=== PATIENT | male | born 1990 | race Caucasian/White ===

== ENCOUNTER 2018-08-12 10:44 | Emergency (ER) | payer MEDICAID, OTHER ==
[~2018-08-12] VITALS: Ht 177.8 cm; Wt 63.5 kg
[2018-08-12] MEDS ORDERED: cefTRIAXone SOD 1,000 MG VL IM ONE (11:15)
[2018-08-12] MEDS ORDERED: LIDOCAINE 1% HCL (LOCAL ANESTH.) INJ 20ML MDV IJ ONE (11:45)
[2018-08-12 12:19] VITALS: BP 125/74
== END 2018-08-12 12:25 | disposition home or self-care (01) ==
LOC: ER 10:50
DX: J03.90 Acute tonsillitis, unspecified (principal); M54.2 Cervicalgia; Z88.0 Allergy status to penicillin
CPT/HCPCS: 96372; 99283; J0696; J2001

== ENCOUNTER 2018-10-23 11:02 | Emergency (ER) | payer MEDICAID ==
[~2018-10-23] VITALS: Ht 177.8 cm; Wt 63.5 kg
[2018-10-23 11:09] VITALS: BP 120/82
== END 2018-10-23 13:26 | disposition home or self-care (01) ==
LOC: ER 11:02
DX: S02.81XA Fracture of other specified skull and facial bones, right side, initial encounter for closed fracture (principal); S02.609A Fracture of mandible, unspecified, initial encounter for closed fracture; S80.212A Abrasion, left knee, initial encounter; S80.211A Abrasion, right knee, initial encounter; F17.210 Nicotine dependence, cigarettes, uncomplicated; Z88.0 Allergy status to penicillin; Y04.2XXA Assault by strike against or bumped into by another person, initial encounter; Y93.89 Activity, other specified; Y92.511 Restaurant or cafe as the place of occurrence of the external cause; Y99.8 Other external cause status
CPT/HCPCS: 70450; 70486

== ENCOUNTER 2019-10-29 16:29 | Emergency (ER) | payer MEDICAID ==
[~2019-10-29] VITALS: Ht 177.8 cm; Wt 59.0 kg
[2019-10-29 17:00] VITALS: BP 114/84
== END 2019-10-29 18:51 | disposition left against medical advice (07) ==
LOC: ER 16:29
DX: M79.605 Pain in left leg (principal); Z53.21 Procedure and treatment not carried out due to patient leaving prior to being seen by health care provider

== ENCOUNTER 2022-04-10 16:44 | Emergency (ER) | payer MEDICAID ==
[~2022-04-10] VITALS: Ht 177.8 cm; Wt 63.0 kg
[2022-04-10 18:21] LABS: Basophils # (auto) 0 10 ^3/uL (0-0.2); Basophils % (auto) 0.3 % (0.0-2.0); Eosinophils # (auto) 0.1 10 ^3/uL (0-0.8); Eosinophils % (auto) 1.1 % (0.0-7.0); Hematocrit 37.4 % (41.0-53.0); Hemoglobin 12.8 g/dL (13.5-17.5); Lymphocytes # (auto) 0.9 10 ^3/uL (0.4-5.4); Lymphocytes % (auto) 15.1 % (10.0-50.0); Mean Corpuscular Hemoglobin 29.7 pg (28.0-32.0); Mean Corpuscular Hgb Conc. 34.2 g/dL (32.0-36.0); Monocytes # (auto) 0.4 10 ^3/uL (0-1.3); Monocytes % (auto) 7.8 % (0.0-12.0); Neutrophils # (auto) 4.3 10 ^3/uL (1.6-8.6); Neutrophils % (auto) 75.7 % (37.0-80.0); Red Cell Distribution Width 13.1 % (11.8-14.3); White Blood Cell 5.7 10^3/uL (4.4-10.8)
[2022-04-10 18:25] LABS: Albumin 3.6 g/dL (3.4-5.0); BUN/Creatinine Ratio 16.2; Calcium 8.4 mg/dL (8.5-10.1)
[2022-04-10 18:28] LABS: Urine Bacteria NONE SEEN /hpf (None Seen); Urine Blood Negative /uL (Negative); Urine Mucus FEW (None Seen); Urine Specific Gravity 1.027 (1.001-1.035); Urine WBC <1 /hpf (0 - 3)
[2022-04-10 18:28] LABS: Bilirubin, Total 0.3 mg/dL (0.2-1.0); Total Protein 6.4 g/dL (6.4-8.2)
[2022-04-10] MEDS ORDERED: CEPH-510 PO (20:55)
[2022-04-10] MEDS ORDERED: DOXY-340 PO (20:55)
[2022-04-10 22:46] VITALS: BP 110/50
== END 2022-04-10 22:48 | disposition home or self-care (01) ==
LOC: ER 16:44
DX: R22.42 Localized swelling, mass and lump, left lower limb (principal)
CPT/HCPCS: 36415; 80053; 81001; 83605; 85025; 85652; 86141; 87040; 93970

== ENCOUNTER 2022-10-21 10:03 | Emergency (ER) | payer MEDICAID ==
[~2022-10-21] VITALS: Ht 177.8 cm; Wt 61.6 kg
[~2022-10-21 10:03] MED LIST: CEPH-510 PO; DOXY1CAP57 PO
[2022-10-21 11:57] LABS: Urine Bacteria FEW /hpf (None Seen); Urine Blood Negative /uL (Negative); Urine Clarity Clear (Clear); Urine Color Yellow (Yellow); Urine Mucus FEW (None Seen); Urine Protein, UAD Negative (Negative); Urine Specific Gravity 1.022 (1.001-1.035); Urine Urobilinogen Normal (Negative); Urine WBC 1 /hpf (0 - 3)
[2022-10-21] MEDS ORDERED: SODIUM CHLORIDE 0.9% 1,000 ML IV ONE (12:15)
[2022-10-21 13:30] LABS: Alanine Aminotransferase 23 U/L (7-40); Albumin 4.3 g/dL (3.2-4.8); Alkaline Phosphatase 74 U/L (46-116); Anion Gap 3.1 (5-15); Aspartate Aminotransferase 9 U/L (13-40); BUN/Creatinine Ratio 16.1 (10.0-20.0); Bilirubin, Total 0.6 mg/dL (0.2-1.0); Blood Urea Nitrogen 15 mg/dL (9-23); Calcium 9.4 mg/dL (8.5-10.1); Carbon Dioxide 31.9 mmol/L (20-30); Chloride 105 mmol/L (98-107); Glucose 100 mg/dL (74-106); Potassium 4.7 mmol/L (3.5-5.1); Sodium 140 mmol/L (136-145); Total Protein 6.4 g/dL (5.7-8.2)
[2022-10-21 15:09] LABS: Amphetamine Screen, Urine Pos (NEGATIVE)
[2022-10-21 15:10] LABS: Benzodiazephine Screen, Urine Neg (NEGATIVE)
[2022-10-21 15:11] LABS: Barbiturate Scree,Urine Neg (NEGATIVE); Cannabinoid Screen, Urine Neg (NEGATIVE); Cocaine Screen, Urine Neg (NEGATIVE); Opiate Scree,Urine Neg (NEGATIVE); Phencyclidine Screen, Urine Neg (NEGATIVE)
[2022-10-21 15:22] LABS: Basophils # (auto) 0 10 ^3/uL (0-0.2); Basophils % (auto) 0.3 % (0.0-2.0); Eosinophils # (auto) 0 10 ^3/uL (0-0.8); Eosinophils % (auto) 0.8 % (0.0-7.0); Hematocrit 39.7 % (41.0-53.0); Hemoglobin 13.2 g/dL (13.5-17.5); Lymphocytes # (auto) 0.8 10 ^3/uL (0.4-5.4); Lymphocytes % (auto) 12.8 % (10.0-50.0); Mean Corpuscular Hemoglobin 28.8 pg (28.0-32.0); Mean Corpuscular Hgb Conc. 33.3 g/dL (32.0-36.0); Mean Corpuscular Volume 86.5 fL (80.0-100.0); Monocytes # (auto) 0.5 10 ^3/uL (0-1.3); Monocytes % (auto) 7.5 % (0.0-12.0); Neutrophils # (auto) 5.2 10 ^3/uL (1.6-8.6); Neutrophils % (auto) 78.6 % (37.0-80.0); Nucleated Red Blood Cells % 0.1 %; Red Blood Cells 4.59 10^6/uL (4.5-5.90); Red Cell Distribution Width 13.1 % (11.8-14.3); White Blood Cell 6.6 10^3/uL (4.4-10.8)
[2022-10-21] MEDS ORDERED: ASPirin 325 MG TAB PO ONE (16:00)
[2022-10-21 16:59] VITALS: BP 98/37; PULSE 64; RESP 18; TEMP 96.4; O2SAT 99
== END 2022-10-21 15:55 | disposition home or self-care (01) ==
LOC: ER 10:03
DX: R07.9 Chest pain, unspecified (principal); F15.10 Other stimulant abuse, uncomplicated; F11.10 Opioid abuse, uncomplicated; Z79.899 Other long term (current) drug therapy
CPT/HCPCS: 36415; 71045; 80053; 80307; 81001; 82962; 83605; 84484; 85025; 85379; 93005; 96360; 99285; J7030

== ENCOUNTER 2024-12-14 07:13 | Emergency (ER) | payer MEDICAID ==
[~2024-12-14] VITALS: Ht 177.8 cm; Wt 59.1 kg
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
--- NOTE | 2024-12-14 08:36 | DVH ---
EXAM: XY L RIB X RAY HISTORY: FALL X 10 DAYS AGO COMPARISON: XY CHEST PORTABLE on DOS: 10/21/22 TECHNIQUE: Frontal view of the chest and multiple views of the left ribs were performed. FINDINGS: No pneumothorax, pulmonary edema, or consolidative infiltrates. The heart is not enlarged. There is a n acute fracture of the 8th and 9th rib. IMPRESSION: 1. Acute fractures of the left 8th and 9th ribs. 2. No pneumothorax.
--- NOTE | 2024-12-14 08:44 | DVH ---
CLINICAL INFORMATION: Fall injury. TECHNIQUE: Axial imaging was obtained through the brain without contrast. Axial CT imaging of the ma xillofacial region was obtained without contrast. Coronal and sagittal reformatted images were obtai milton, reviewed, and stored. One or more of the following dose reduction techniques were used: Automat ed exposure control. Adjustment of mA and/or kV according to patient size. CTDIvol = 60.74, 55.11, 0.14 mGy DLP = 2383.56 mGy-cm COMPARISON: HEAD WITHOUT CONTRAST on DOS: 10/23/18, MAXILLOFACIAL WITHOUT on DOS: 10/23/18 FINDINGS: CT HEAD: There is no acute intracranial hemorrhage or extraaxial fluid collection. No mass effect or midline shift. The ventricles and sulci are within normal limits in size for age. Basal cisterns are patent. The calvarium is unremarkable. CT FACIAL: Pterygoid plates are intact. There is acute fracture involving the floor of the left orbi t with mild depression. Left inferior rectus muscle courses adjacent to the fracture site without ev idence of entrapment. No orbital hematoma is seen. Globes and orbital structures are intact and other bucio unremarkable. No intraorbital gas visualized. The rest of the orbital luz are intact. There is acute fracture involving the posterolateral wall of the left maxillary sinus with angulation. Mild m ucosal thickening and small amount of fluid in the left maxillary sinus. There is acute fracture of t he left zygomatic arch with prominent angulation and adjacent soft tissue swelling. Nasal bones and m andible are intact. No significant soft tissue abnormality identified. IMPRESSION: 1. No CT evidence of acute intracranial abnormality. 2. Acute fractures involving the left orbital floor, posterolateral wall of the left maxillary sinus, and left zygomatic arch. 3. The left inferior rectus muscle courses adjacent to the orbital floor fracture without evidence of entrapment.
[2024-12-14] MEDS ORDERED: AMOX875T3 PO (09:00)
[2024-12-14] MEDS ORDERED: TRAM-626 PO (09:00)
[2024-12-14 09:03] VITALS: BP 130/76; PULSE 92; RESP 15; TEMP 98.3; O2SAT 98
== END 2024-12-14 09:04 | disposition home or self-care (01) ==
LOC: ER 07:13
DX: S06.9X1A Unspecified intracranial injury with loss of consciousness of 30 minutes or less, initial encounter (principal); S02.32XA Fracture of orbital floor, left side, initial encounter for closed fracture; S02.40DA Maxillary fracture, left side, initial encounter for closed fracture; S02.40FA Zygomatic fracture, left side, initial encounter for closed fracture; S22.42XA Multiple fractures of ribs, left side, initial encounter for closed fracture; Z88.0 Allergy status to penicillin; F17.210 Nicotine dependence, cigarettes, uncomplicated; X58.XXXA Exposure to other specified factors, initial encounter; Y93.89 Activity, other specified; Y92.89 Other specified places as the place of occurrence of the external cause; Y99.8 Other external cause status
CPT/HCPCS: 70450; 70486; 71101

== ENCOUNTER 2025-02-25 10:26 | Emergency (ER) | payer MEDICAID ==
[~2025-02-25] VITALS: Ht 177.8 cm; Wt 68.0 kg
[~2025-02-25 10:26] MED LIST changes: +AMOX875T3 PO; +TRAM-626 PO
--- NOTE | 2025-02-25 11:10 | ED.PDOC ---
Altered Mental Status HPI Comments 34 y.o male presents to the ED via EMS for an evaluation of an overdose. EMS reports patient was given 12 of Narcan by SO on scene and patient regained consciousness. Patient is now alert and oriented x 4 and is able to ambulate upon ED arrival. Patient states he was sleeping and took Fentanyl this morning. Patient also has a hx of methamphetamine abuse but denies any use today. Patient is asymptomatic at this time. Chief Complaint: Overdose Time Seen by MD: 10:33 Primary Care Provider: UNKNOWN Reviewed Notes: Nurses Notes, Environmental Sciences Professor Notes, Medications, Allergies Allergies: Coded Allergies: Penicillins (Verified Allergy, Unknown, 08/12/18) Home Meds Active Scripts Tramadol HCl (Tramadol HCl) 50 Mg Tab, 50 MG PO BID, #20 TAB Prov:ESMER HILLIARD 12/14/24 Amoxicillin Trihydrate (Amoxicillin) 875 Mg Tab, 1 TAB PO BID, #20 TAB Prov:ESMER HILLIARD 12/14/24 Doxycycline Monohydrate (Doxycycline Monohydrate) 100 Mg Cap, 1 CAP PO BID for 10 Days, #20 CAP Prov:FILOMENA OSWALD DO 04/10/22 Cephalexin ( Keflex 500) 500 Mg Cap, 1 CAP PO QID for 10 Days, #40 CAP Prov:FILOMENA OSWALD DO 04/10/22 Information Source: Patient, Emergency Med Personnel Mode of Arrival: EMS Severity: Moderate Timing: Hours Duration: Since onset Quality: Decreased Alertness Recent: None History of: None Associated Signs and Symptoms: Other Past Medical History PAST MEDICAL HISTORY: Denies Family History Family History: Reviewed,noncontributory to illness Social History Smoker: Cigarettes Alcohol: Denies ETOH Use Drugs: Marijuana, Methamphetamine, Other (fentanyl ) Lives In: Home Constitutional: denies: chills, diaphoresis, fatigue, fever, malaise, sweats, weakness, others EENTM: denies: blurred vision, double vision, ear bleeding, ear discharge, ear drainage, ear pain, ear ringing, eye pain, eye redness, hearing loss, mouth pain, mouth swelling, nasal discharge, nose bleeding, nose congestion, nose pain, photophobia, tearing, throat pain, throat swelling, voice changes, others Respiratory: denies: cough, hemoptysis, orthopnea, SOB at rest, shortness of breath, SOB with excertion, stridor, wheezing, others Cardiovascular: denies: chest pain, dizzy spells, diaphoresis, Dyspnea on exertion, edema, irregular heart beat, left arm pain, lightheadedness, palpitations, PND, syncope, others Gastrointestinal: denies: abdomen distended, abdominal pain, blood streaked bowels, constipated, diarrhea, dysphagia, difficulty swallowing, hematemesis, melena, nausea, poor appetite, poor fluid intake, rectal bleeding, rectal pain, vomiting, others Genitourinary: denies: burning, dysuria, flank pain, frequency, hematuria, incontinence, penile discharge, penile sore, pain, testicle pain, testicle sw elling, urgency, others Neurological: denies: dizziness, fainting, headache, left sided numbness, left sided weakness, numbness, paresthesia, pre-existing deficit, right sided numbness, right sided weakness, seizure, speech problems, tingling, tremors, weakness, others Musculoskeletal: denies: back pain, gout, joint pain, joint swelling, muscle pain, muscle stiffness, neck pain, others Integumetry: denies: bruises, change in color, change in hair/nails, dryness, laceration, lesions, lumps, rash, wounds, others Allergic/Immunocompromised: denies: Difficulty Healing, Frequent Infections, Hives, Itching, others Hematologic/Lymphatic: denies: anemia, blood clots, easy bleeding, easy bruising, swollen glands, others Endocrine: denies: excessive hunger, excessive sweating, excessive thirst, excessive urination, flushing, intolerance to cold, intolerance to heat, unexplained weight gain, unexplained weight loss, others Psychiatric: denies: anxiety, bipolar disorder, depression, hopeless, panic disorder, schizophrenia, sleepless, suicidal, others All Other Systems: Reviewed and Negative Physical Exam General Appearance: Moderate Distress HEENT: Normal ENT Inspection, Pharynx Normal, TMs Normal Neck: Full Range of Motion, Non-Tender, Normal, Normal Inspection Respiratory: Chest Non-Tender, Lungs Clear, No Accessory Muscle Use, No Respiratory Distress, Normal Breath Sounds Cardiovascular: No Edema, No JVD, No Murmur, No Gallop, Normal Peripheral Pulses, Regular Rate/Rhythm Breast Exam: Deferred Gastrointestinal: No Organomegaly, Non Tender, No Pulsatile Mass, Normal Bowel Sounds, Soft Genitalia: Deferred Pelvic: Deferred Rectal: Deferred Extremities: No calf tenderness, Normal capillary refill, Normal inspection, Normal range of motion, Non-tender, No pedal edema Musculoskeletal : Apperance: Normal Neurologic: Alert, hereditary cancer program coordinator II-XII nml as Tested, No Motor Deficits, Normal Affect, Normal Mood, No Sensory Deficits Cerebellar Function: Normal Reflexes: Normal Skin: Dry, Normal Color, Warm Peripheral Pulses: 3+ Radial (R), 3+ Radial (L) Lymphatic: No Adenopathy Was a procedure done? Was a procedure done?: No Differential Diagnosis (ALOC) Differential Diagnosis: Dehydration, Drug Overdose, ETOH Intoxication X-Ray, Labs, Meds, VS Vital Signs Date Time Temp Pulse Resp B/P (MAP) Pulse Ox O2 Delivery O2 Flow Rate FiO2 02/25/25 11:48 98.1 120 17 127/80 (96) 95 98.1 02/25/25 11:48 120 17 95 Room Air 02/25/25 11:11 98.0 102 17 125/85 98 98.0 Patient alert. Vitals stable. Came in because of fentanyl overdose. Answering questions. He was given Narcan in the field. He is more alert. Ambulating. Abdomen is soft nontender. No shortness a breath. No chest pain. No injuries. Counseled patient on effects of using drugs for 15 minutes. Explained to the patient. Was told to follow up with his primary care physician. Was told to come back if there is any problem. Time of 1ST Reevaluation: 11:03 Reevaluation 1ST: Unchanged Patient Education/Counseling: Diagnosis, Treatment, Prognosis Family Education/Counseling: No Family Present SEPSIS Sepsis Screen Vital Signs Date Time Temp Pulse Resp B/P (MAP) Pulse Ox O2 Delivery O2 Flow Rate FiO2 02/25/25 11:48 98.1 120 17 127/80 (96) 95 98.1 02/25/25 11:48 120 17 95 Room Air 02/25/25 11:11 98.0 102 17 125/85 98 98.0 Departure 1 Departure Time of Disposition: 12:52 Impression: Primary Impression: Drug overdose Qualified Codes: T50.904A - Poisoning by unspecified drugs, medicaments and biological substances, undetermined, initial encounter Disposition: HOME / SELF CARE / HOMELESS Condition: Good Discharged With: Self Critical Care Note Critical Care Time?: No Stability Stability form required: No I personally scribed for ADEN CROOKS MD [email or web address] on 02/25/25 at 11:10. Electronically submitted by Georgina Calabrese ([facility]). ADEN CROOKS MD Feb 25, 2025 11:10
[2025-02-25 13:07] VITALS: BP 110/72; PULSE 94; RESP 16; TEMP 98.3; O2SAT 95
== END 2025-02-25 13:07 | disposition home or self-care (01) ==
LOC: ER 10:26 → EDBD 10:26 → ER 13:07
DX: T50.7X1A Poisoning by analeptics and opioid receptor antagonists, accidental (unintentional), initial encounter (principal); Y92.89 Other specified places as the place of occurrence of the external cause; F17.210 Nicotine dependence, cigarettes, uncomplicated; Z88.0 Allergy status to penicillin
CPT/HCPCS: 82947